=== PATIENT | female | born 1935 | race Caucasian/White ===

== ENCOUNTER 2016-04-30 02:10 | Emergency (ER) | payer MEDICARE ==
[~2016-04-30] VITALS: Ht 162.6 cm; Wt 65.0 kg
[~2016-04-30 02:10] MED LIST: ASPI81 PO; OYST500T77 PO; PRED20 PO; SPIRCAP INH; TAB-TAB PO; ZOCO40TA PO
[2016-04-30 02:13] VITALS: BP 197/99; PULSE 111; RESP 32; TEMP 97.9; O2SAT 94
[2016-04-30 02:15] VITALS: O2SAT 95
[2016-04-30] MEDS ORDERED: MULT-135 PO (02:21)
[2016-04-30] MEDS ORDERED: CALC500T35 PO (02:21)
[2016-04-30] MEDS ORDERED: PRED20 PO (02:21)
[2016-04-30] MEDS ORDERED: NORV2.5T PO (02:21)
[2016-04-30] MEDS ORDERED: LIPI40TA PO (02:21)
[2016-04-30] MEDS ORDERED: ASPI1TAB69 PO (02:21)
[2016-04-30] MEDS: RESP: ALBUTEROL 2.5 MG/IPRATROPIUM 0.5 MG NEB (SCH) INH (02:27)
[2016-04-30] MEDS ORDERED: SODIUM CHLORIDE 0.9% FLUSH 5 ML FLUSH IVF PRN (02:30)
[2016-04-30] MEDS ORDERED: MAGNESIUM SULFATE 1 GM PREMIX 100 ML IV SCH (02:30)
--- NOTE | 2016-04-30 02:31 | PD ---
HPI Chief Complaint: Respiratory Distress Time Seen by Provider: 02:15 Travel History International Travel<30 days: No Contact w/Intl Traveler<30days: No Traveled to known affect area: No History of Present Illness HPI 80-year-old female with history of COPD, presents to the ER today for worsening shortness of breath, coughing, wheezing, has been using nebulizers at home without significant relief. She denies any fevers or any other issues. She was given several doses of nebulizers by EMS and Solu-Medrol as well. They state that her initial saturations were in the 70s and now she is 95% with nebulizer. Modifying Factors: None Associated Signs & Symptoms: Shortness of breath Risk Factors: COPD PFSH Past Medical History High Cholesterol: Yes Chemotherapy: Yes COPD: Yes Diminished Hearing: No Integumentary: Yes (ECZEMA) Past Surgical History Appendectomy: Yes Section: Yes (2) Cholecystectomy: Yes Hysterectomy: Yes Other Surgery: Yes (LT KIDNEY REMOVED 1940) Social History Alcohol Use: Yes ("WINE OCASIONALLY") Tobacco Use: No Substance Use: No Allergies-Medications (Allergen,Severity, Reaction): Coded Allergies: No Known Allergies (Verified , 04/30/16) Reported Meds & Prescriptions Reported Meds & Active Scripts Active Reported Norvasc (Amlodipine Besylate) 2.5 Mg Tab 2.5 Mg PO DAILY Lipitor (Atorvastatin Calcium) 40 Mg Tab 40 Mg PO HS Prednisone 20 Mg Tab 20 Mg PO DAILY Multi Vitamin (Multiple Vitamin) 1 Tab Tab 1 Tab PO DAILY Calcium (Oyster Shell) 500 Mg Tab 500 Mg PO DAILY Aspirin 81 Mg Tabdr 81 Mg PO DAILY Review of Systems Except as stated in HPI: all other systems reviewed are Neg Physical Exam Narrative GENERAL: Well-nourished, well-developed elderly white female patient in moderate respiratory distress. Awake and oriented 3. SKIN: Warm and dry. HEAD: Normocephalic. EYES: No scleral icterus. No injection or drainage. NECK: Supple, trachea midline. CARDIOVASCULAR: Regular rate and rhythm without murmurs, gallops, or rubs. RESPIRATORY: Breath sounds equal with wheezing throughout bilaterally. Moderate accessory muscle use. GASTROINTESTINAL: Abdomen soft, non-tender, nondistended. MUSCULOSKELETAL: No cyanosis, or edema. BACK: Nontender without obvious deformity. No CVA tenderness. Data Data Last Documented VS Vital Signs Date Time Temp Pulse Resp B/P Pulse Ox O2 Delivery O2 Flow Rate FiO2 04/30/16 02:55 110 24 135/60 95 Nasal Cannula 3 04/30/16 02:13 97.9 Orders Complete Blood Count With Diff (04/30/16 02:16) Basic Metabolic Panel (Bmp) (04/30/16 02:16) B-Type Natriuretic Peptide (04/30/16 02:16) Iv Access Insert/Monitor (04/30/16 02:16) Ecg Monitoring (04/30/16 02:16) Oximetry (04/30/16 02:16) Oxygen Administration (04/30/16 02:16) Chest, Single Ap (04/30/16 02:16) Sodium Chloride 0.9% Flush (Ns Flush) (04/30/16 02:30) Albuterol-Ipratropium Neb (Duoneb Neb) (04/30/16 02:30) Magnesium Sulfate 1 Gm Premix (Magnesium (04/30/16 02:30) Ondansetron Inj (Zofran Inj) (04/30/16 02:45) Ondansetron Inj (Zofran Inj) (04/30/16 02:36) Labs Laboratory Tests Test 04/30/16 02:21 White Blood Count 8.6 TH/MM3 Red Blood Count 4.89 MIL/MM3 Hemoglobin 15.5 GM/DL Hematocrit 46.3 % Mean Corpuscular Volume 94.7 FL Mean Corpuscular Hemoglobin 31.8 PG Mean Corpuscular Hemoglobin 33.6 % Concent Red Cell Distribution Width 13.6 % Platelet Count 163 TH/MM3 Mean Platelet Volume 8.1 FL Neutrophils (%) (Auto) 51.2 % Lymphocytes (%) (Auto) 30.8 % Monocytes (%) (Auto) 9.3 % Eosinophils (%) (Auto) 8.0 % Basophils (%) (Auto) 0.7 % Neutrophils # (Auto) 4.4 TH/MM3 Lymphocytes # (Auto) 2.6 TH/MM3 Monocytes # (Auto) 0.8 TH/MM3 Eosinophils # (Auto) 0.7 TH/MM3 Basophils # (Auto) 0.1 TH/MM3 CBC Comment DIFF FINAL Differential Comment Sodium Level 143 MEQ/L Potassium Level 4.1 MEQ/L Chloride Level 103 MEQ/L Carbon Dioxide Level 33.1 MEQ/L Anion Gap 7 MEQ/L Blood Urea Nitrogen 23 MG/DL Creatinine 1.32 MG/DL Estimat Glomerular Filtration 39 ML/MIN Rate Random Glucose 106 MG/DL Calcium Level 8.8 MG/DL B-Type Natriuretic Peptide 35 PG/ML MDM Medical Decision Making Medical Screen Exam Complete: Yes Emergency Medical Condition: Yes Medical Record Reviewed: Yes Interpretation(s) Laboratory Tests Test 04/30/16 02:21 Hemoglobin 15.5 GM/DL (11.6-15.3) Hematocrit 46.3 % (35.0-46.0) Monocytes (%) (Auto) 9.3 % (0.0-8.0) Eosinophils (%) (Auto) 8.0 % (0.0-4.0) Eosinophils # (Auto) 0.7 TH/MM3 (0-0.4) Carbon Dioxide Level 33.1 MEQ/L (21.0-32.0) Blood Urea Nitrogen 23 MG/DL (7-18) Creatinine 1.32 MG/DL (0.50-1.00) Estimat Glomerular Filtration 39 ML/MIN (>89) Rate Differential Diagnosis Shortness of breathCOPD versus CHF versus pneumonia Narrative Course Chest x-ray did not show any signs of acute pulmonary processes. Patient was given Solu-Medrol by EMS and several doses of DuoNeb's as well as in the ER, was given magnesium IV as well. On reevaluation at 4:15 AM, she is feeling much better, and her sats are much improved. She states she feels ready to go home. She is able to ambulate in the ER without issues. At this point, my plan would be to release her with follow-up to primary care physician. Return for any worsening in symptoms as needed. The plan has been discussed with her and she states understanding. Diagnosis Primary Impression: COPD exacerbation Med/Other Pt SpecificInfo: Prescription(s) given Scripts Albuterol 6.7 GM Inh (Proventil Hfa 6.7 GM Inh)90 Mcg/Act Aer2 Puff INH Q4-6H PRN (SHORTNESS OF BREATH) #1 INHALER Ref 0 Prov:Kathryn Johnson MD 04/30/16 Prednisone 50 Mg Tab50 Mg PO DAILY #5 TAB Ref 0 Prov:Kathryn Johnson MD 04/30/16 Disposition: 01 DISCHARGE HOME Condition: Stable Kathryn Johnson MD Apr 30, 2016 02:31
[2016-04-30 02:33] VITALS: O2SAT 84
[2016-04-30] MEDS ORDERED: ONDANSETRON HCL 4 MG/2 ML VIAL ONE (02:36)
[2016-04-30] MEDS ORDERED: ONDANSETRON HCL 4 MG/2 ML VIAL IV PUSH ONE (02:45)
[2016-04-30 02:47] LABS: AUTOMATED NEUTROPHIL # 4.4 TH/MM3 (1.8-7.7); BASOPHIL # 0.1 TH/MM3 (0-0.2); BASOPHIL % 0.7 % (0.0-2.0); EOSINOPHIL # 0.7 TH/MM3 (0-0.4); HEMATOCRIT 46.3 % (35.0-46.0); HEMO FLAGS DIFF FINAL; LYMPH % 30.8 % (9.0-44.0); LYMPHOCYTE # 2.6 TH/MM3 (1.0-4.8); MEAN CELL VOLUME 94.7 FL (80.0-100.0); MEAN CORPUSCULAR HEMOGLOBIN 31.8 PG (27.0-34.0); MEAN CORPUSCULAR HGB CONC 33.6 % (32.0-36.0); MONO % 9.3 % (0.0-8.0); NEUT % 51.2 % (16.0-70.0); PLATELET COUNT 163 TH/MM3 (150-450); RED BLOOD COUNT 4.89 MIL/MM3 (4.00-5.30); RED CELL DISTRIBUTION WIDTH 13.6 % (11.6-17.2); WHITE BLOOD COUNT 8.6 TH/MM3 (4.0-11.0)
[2016-04-30 02:55] VITALS: BP 135/60; PULSE 110; RESP 24; O2SAT 95
[2016-04-30 03:00] LABS: BICARBONATE 33.1 MEQ/L (21.0-32.0); POTASSIUM 4.1 MEQ/L (3.5-5.1)
--- NOTE | 2016-04-30 03:46 | RADRPT ---
EXAM DATE/TIME: 04/30/2016 02:53 [facility] COMPARISON: No previous studies available for comparison. INDICATIONS : Shortness of breath. MEDICAL HISTORY : Chronic obstructive pulmonary disease. SURGICAL HISTORY : None. ENCOUNTER: Initial ACUITY: 1 day PAIN SCORE: 0/10 LOCATION: Bilateral chest FINDINGS: The cardiac silhouette is normal in transverse diameter. The lungs are free of acute parenchymal opac ity. No effusions are identified. The aortic knob is prominent with tortuosity of the descending thor acic aorta. CONCLUSION: 1. No acute cardiopulmonary disease. Lamin Ku MD on April 30, 2016 at 3:40 Board Certified Radiologist. This report was verified electronically.
[2016-04-30] MEDS ORDERED: PRED50 PO (04:35)
[2016-04-30] MEDS ORDERED: ALBU6.7H INH (04:35)
--- NOTE | 2016-04-30 15:50 | EKG ---
Date Performed: 04/30/2016 Time Performed: 02:17:48 PTAGE: 80 years EKG: SINUS TACHYCARDIA Poor R wave progression Cannot rule out old anterior injury Clinical lisa elation is recommended ABNORMAL RHYTHM ECG NO PREVIOUS TRACING DOCTOR: Eulogio Goodwin Interpretating Date/Time 04/30/2016 15:49:50
== END 2016-04-30 06:30 | disposition home or self-care (01) ==
LOC: NEPC 02:10
DX: J44.1 Chronic obstructive pulmonary disease with (acute) exacerbation (principal); E78.00 Pure hypercholesterolemia, unspecified
CPT/HCPCS: 71010; 80048; 83880; 85025; 93005; 94640; 94664; 96365; 96375; 99284; J2405; J3475